=== PATIENT | male | born 1945 | race Caucasian/White ===

== ENCOUNTER 2024-03-24 15:02 | Emergency (ER) | payer MEDICARE ==
[2024-03-24] MEDS ORDERED: Lidocaine 2% PF 5 ML VIAL ONE (17:45)
[2024-03-24] MEDS ORDERED: Ciprofloxacin 0.3% Ophth Soln 2.5 ml Bottle R EAR SCH (19:00)
== END 2024-03-24 18:35 | disposition home or self-care (01) ==
LOC: ERS 15:02
DX: T16.1XXA Foreign body in right ear, initial encounter (principal); I10 Essential (primary) hypertension; Z95.5 Presence of coronary angioplasty implant and graft; Z79.899 Other long term (current) drug therapy; W44.8XXA Other foreign body entering into or through a natural orifice, initial encounter
CPT/HCPCS: 69200; 99282